=== PATIENT | male | born 1985 | race Two or more races ===

== ENCOUNTER 2020-05-04 03:41 | Emergency (ER) | payer OTHER ==
[~2020-05-04] VITALS: Ht 180.3 cm; Wt 69.0 kg
[2020-05-04 05:30] VITALS: BP 100/61
== END 2020-05-04 05:33 | disposition home or self-care (01) ==
LOC: ER 03:41
DX: T40.601A Poisoning by unspecified narcotics, accidental (unintentional), initial encounter (principal); I49.9 Cardiac arrhythmia, unspecified; Z98.890 Other specified postprocedural states; Y92.9 Unspecified place or not applicable
CPT/HCPCS: 93005; 99283